=== PATIENT | male | born 1975 | race Caucasian/White ===

== ENCOUNTER 2016-08-02 10:46 | Day surgery (SDC) | payer MEDICAID ==
[~2016-08-02] VITALS: Ht 177.8 cm; Wt 75.0 kg
[~2016-08-02 10:46] MED LIST: AMBIEN10 MG PO; ATIVAN1 MG PO; CYCLOBENZAPRINE10 MG PO; DURAGESIC1 PATCH .1 TRANSDERM; ELAVIL25 MG PO; NEURONTIN 300300 MG PO; SOMA350 MG PO; XANAX1 MG PO
[2016-08-02 11:37] VITALS: Ht 177.8 cm; Wt 75.0 kg
--- NOTE | 2016-08-03 08:10 | PRO ---
PATIENT:BLAIRE CRYSTAL MEDICAL RECORD: [id number] : 75 LOCATION:[facility] ADMISSION DATE: 08/02/16 PROCEDURE PERFORMED BY: FLORECITA YOUNG MD DATE OF PROCEDURE: 08/02/2016 HOSPITAL COURSE: Mr. Crystal is known to this service. He is a 40-year-old male who has presented to this service in referrals by Dr. 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 The patient has relates in the past that he has had some left inguinal and groin pains after his surgical repair of his left inguinal hernia. The patient was referred by Dr. Tse for evaluation and possibly ilioinguinal nerve block to the left side under ultrasound guidance. Those were performed on 2 separate occasions and the patient relates that his pain does not seem to be improving that much. ____ it seems to be less constant than it was when we first started the injection series, but not significant or marked improvement with pain radiating down into his left testicle. It was felt that Dr. Tse needed followup to evaluate the patient 1 more time in the clinic. The patient also has related of low back pain with radiculopathy, bilateral legs. The patient has had MRI, both a lumbar and thoracic MRI in the past, those have demonstrated some pathology. The pathology of the lumbar was L4-L5 and L5-S1 and the pathology of the thoracic MRI was T5-T6. MRI reports were reviewed. The patient had had a lumbar epidural steroid injection at L4-L5 two weeks previously when seen by this service. The patient relates that his pain in his bilateral extremities are somewhat improved, but not totally resolved. The patient relates that he still has some numbness and tingling in the bilateral extremities and requesting a repeat lumbar epidural steroid injection and felt that the first one had it made some improvement in his lower extremity issues. The patient also relates that he has some "upper back problems" in the MRI a few years ago, apparently which is the T5-T6 area. The patient relates that it is causing some discomfort and pain. The patient is requesting to see if we could perhaps consider doing a thoracic epidural steroid injection as we do the lumbar epidural steroid injection to see if that might ameliorate some of his discomfort that he is having in that area. After discussing and reviewing patient and physical examination, we felt that having Dr. Tse review the inguinal area and abating the ilioinguinal nerve block because we were not getting much improvement in using the additional steroids to do a thoracic epidural steroid injection is what Mr. Crystal felt that would benefit him the most. We discussed both the ____ and the thoracic epidural steroid injection. Risks and benefits were explained including risk of bleeding, infection and damage to underlying structures. The patient relates that he is on no anticoagulation therapy at this time. The patient understands risks and elects to proceed with procedures. Planned procedures are lumbar epidural steroid injection L4-L5 and a thoracic epidural steroid injection at ____. The patient was placed in sitting position, Betadine prepped and draped under sterile Betadine conditions and prep, skin wheal was raised with 1% lidocaine over the L4-L5 interspace. A 17-gauge Tuohy needle was thus introduced into the epidural space at L4-L5 using loss of resistance technique. A total volume of 6 mL of injectate was injected which included 2 mL of 0.25% bupivacaine, 2 mL of sterile saline, and 2 mL of 80 mg Depo-Medrol for a total of 6 mL volume. After the patient tolerated that successfully and tolerated it well, the thoracic space was thoracic epidural at L5-L6 was also Betadine prepped and skin wheal was raised at the T5-T6 interspace. A 17-gauge Tuohy needle was then introduced into the epidural space at T5-T6 and another 6 mL of injectate was injected at the T5-T6 level. That contained 3 mL of 0.25% PROCEDURE NOTE [id number] BLAIRE CRYSTAL bupivacaine, and 2 mL of sterile saline, and 1 mL of 80 mg Depo-Medrol. The patient tolerated the procedure well. The patient relates that his lower extremities pain seems to be improved from a 7 or 8/10 to about a 4/10. The patient does relate though that he continue to have some numbness when he sits in long extended periods of time. The patient related that his back pain has improved from an 8/10 to a 4/10. The patient is to return in 1 week for repeat lumbar epidural steroid injection at L4-L5 and a repeat thoracic epidural steroid injection at C5-C6. The patient is also to present next Monday at 10:15 in the morning in Dr. Breving's clinic for reevaluation of his left groin area. TRANSINT:[id number] Voice Confirmation ID: [id number] DOCUMENT ID: [id number] FLORECITA YOUNG MD at 0810 CC: [id number] DICTATION DATE: 08/02/16 1326 COMPLIANCE MANAGER: 08/02/[address] [facility] 08/02/16 [place] [id number] [place] [id number]
== END 2016-08-02 13:25 | disposition home or self-care (01) ==
LOC: D.OPS 10:46
DX: M54.16 Radiculopathy, lumbar region (principal); M54.6 Pain in thoracic spine

== ENCOUNTER 2016-08-09 11:47 | Day surgery (SDC) | payer MEDICAID ==
[~2016-08-09] VITALS: Ht 177.8 cm; Wt 72.7 kg
[2016-08-09 12:39] VITALS: BP 122/77; Ht 177.8 cm; Wt 72.7 kg
== END 2016-08-09 13:39 | disposition home or self-care (01) ==
LOC: D.OPS 11:47
DX: M54.16 Radiculopathy, lumbar region (principal); M54.9 Dorsalgia, unspecified

== ENCOUNTER 2016-08-16 11:45 | Day surgery (SDC) | payer MEDICAID ==
[~2016-08-16] VITALS: Ht 177.8 cm; Wt 75.0 kg
[2016-08-16 12:47] VITALS: BP 121/75; Ht 177.8 cm; Wt 75.0 kg
--- NOTE | 2016-08-17 07:09 | PRO ---
PATIENT:BLAIRE SR MEDICAL RECORD: [id number] : 75 LOCATION:[facility] ADMISSION DATE: 08/16/16 PROCEDURE PERFORMED BY: FLORECITA YOUNG MD DATE OF PROCEDURE: 08/16/2016 Mr. Sr is a 40-year-old male who is known to this service and presents for chronic back pain with bilateral leg radiculopathy. Mr. Sr initially presented as a referral by Dr. Branden Tse for left testicular groin pain after having an inguinal hernia repair. 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 The patient continued to have some discomfort in the left groin after successful blocks. The patient was referred back to Dr. Tse for reevaluation and Dr. Tse felt that he needed antibiotic therapy and may have inflammation of his epididymis. As we evaluated him for his inguinal hernia discomfort and ilioinguinal nerve block, the patient complained of chronic back pain with bilateral leg radiculopathy. The patient had a referral from Dr. Ben Daley, his primary care physician for a lumbar epidural steroid injection for chronic back pain and bilateral leg radiculopathy. MRI did demonstrate a thoracic lesion which apparently was causing the patient some upper back discomfort and some nonspecific lumbar pathology. The patient has had LESIs in the past. The patient has presented with pain of 8/10 prior to lumbar epidural steroid injections. The patient has had a series of 2 returns and it continues that his pain is about a 7 or 8 out of 10. It seems to have some relief of pain for a couple days, but the pain only seems to return. The patient is here, presents today for his third lumbar epidural steroid injection. The patient is asking if we could go 1 level lower to see if that might benefit him with his lower extremity discomfort. The risks and benefits were explained to the patient including risk of bleeding, infection and damage to underlying structures, it should be noted that the patient is currently on no anticoagulation therapy at this time. After risks and benefits were explained, the patient consented. The patient was placed in sitting position, Betadine prepped and draped. Under sterile conditions, a skin wheal was raised at L5-S1 and a 17-gauge Tuohy needle was then introduced into the L5-S1 area and the epidural space was located with loss of resistance technique. Epidural space was located. A solution of 8 mL, which included 4 mL of 0.25% bupivacaine, 160 mg of steroids, the patient was requesting a double dose today, and sodium chloride additional 4 mL, for a total of volume of 8 mL of 0.125% bupivacaine with 160 mg of Depo-Medrol was instilled into the epidural space at L5-S1. The patient related that he has had some mild change in his discomfort to about 6/10, but it did not feel that it would have dropped below that. The patient is to follow up with Dr. Ben Daley to explore other options including radiofrequency ablation if needed and/or surgical consult. TRANSINT:[id number] Voice Confirmation ID: [id number] DOCUMENT ID: [id number] PROCEDURE NOTE [id number] BLAIRE SR, FLORECITA MORA at 0709 CC: [id number] DICTATION DATE: 08/16/16 1331 PARTS DELIVERY DRIVER: 08/16/16 1357 [facility] [place] 08/16/[address] [id number]
== END 2016-08-16 13:35 | disposition home or self-care (01) ==
LOC: D.OPS 11:45
DX: M54.16 Radiculopathy, lumbar region (principal); G89.29 Other chronic pain

== ENCOUNTER → 2016-10-18 09:59 | Outpatient (CLI) | payer MEDICAID ==
[2016-08-16 12:47] VITALS: BMI 23.7
== END | disposition home or self-care (01) ==
LOC: D.US 09:59
DX: R10.9 Unspecified abdominal pain (principal)